=== PATIENT | female | born 1940 | race Caucasian/White ===

== ENCOUNTER 2020-09-05 07:54 | Outpatient (CLI) | payer MEDICARE ==
[2020-09-05 10:37] LABS: Estimated GFR-MDRD - POC Greater than 90
== END 2020-09-05 07:55 | disposition home or self-care (01) ==
LOC: CSHCT 07:54
PROVIDERS: ATTEND Family Medicine
DX: R10.84 Generalized abdominal pain (principal)
CPT/HCPCS: 74177; 82565

== ENCOUNTER 2020-10-16 10:26 | Day surgery (SDC) | payer MEDICARE ==
[2020-10-14 14:02] VITALS: BMI 23.0
[2020-10-16] MEDS ORDERED: Lidocaine 1% MPF 2 ML VIAL ONE (11:18)
[2020-10-16] MEDS ORDERED: Lidocaine 2% MPF 10 ML AMP (For Epidural Use) ONE (12:15)
[2020-10-16] MEDS ORDERED: PROPOFOL 40 ML ONE (12:15)
[2020-10-16] MEDS ORDERED: PROPOFOL 20 ML ONE (12:34)
== END 2020-10-16 13:55 | disposition home or self-care (01) ==
LOC: CSHSDC 10:26
PROVIDERS: ATTEND Internal Medicine Gastroenterology
DX: K63.89 Other specified diseases of intestine (principal); K59.00 Constipation, unspecified; K31.7 Polyp of stomach and duodenum; K29.80 Duodenitis without bleeding
CPT/HCPCS: 88305; J2704

== ENCOUNTER 2021-12-09 14:21 | Inpatient (IN) | payer MEDICARE ==
[2021-12-09 14:55] LABS: #Basophils 0.1 10x3/uL (0.0-0.2); #Monocytes 1.2 10x3/uL (0.0-1.1); #Neutrophils 8.1 10x3/uL (1.5-8.4); %Basophils 0.5 % (0.0-2.0); %Eosinophils 0.2 % (0.0-6.0); %Lymphocytes 11.9 % (18.0-47.0); %Monocytes 11.1 % (0.0-10.0); %Neutrophils 75.6 % (40.0-75.0); Hemoglobin 11.6 g/dL (12.0-15.5); Mean Corpuscular Hemoglobin 23.8 pg (27.0-33.0); Mean Corpuscular Volume 76.8 fl (81.6-98.3); Mean Platelet Volume 10.5 fl (7.4-10.4); Platelet Count 326 10x3/uL (150-450); RBC Distribution Width 19.2 % (11.5-14.5); Red Blood Cell (RBC) Count 4.87 10x6/uL (3.90-5.03); White Blood Cell (WBC) Count 10.7 10x3/uL (3.5-10.5)
[2021-12-09 15:14] LABS: ALT (SGPT) 44 U/L (8-55); AST (SGOT) 46 U/L (5-34); Albumin 4.2 g/dL (3.4-4.8); Alkaline Phosphatase 172 U/L (40-110); Anion Gap 17 mmol/L (10-20); BUN (Urea Nitrogen) 10 mg/dL (9.8-20.1); Bilirubin, Total 0.3 mg/dL (0.2-1.2); Calc. Creatinine Clearance 0 mL/min (70-130); Calcium 9.1 mg/dL (7.8-10.44); Carbon Dioxide 22 mmol/L (23-31); Chloride 103 mmol/L (98-107); Estimated GFR 88; Globulin 2.7 g/dL (2.4-3.5); Glucose 138 mg/dL (83-110); Lipase 14 U/L (8-78); Potassium 3.9 mmol/L (3.5-5.1); Protein, Total 6.9 g/dL (5.8-8.1); Sodium 138 mmol/L (136-145)
[2021-12-09 15:25] LABS: SARS-CoV-2 NAA Rapid Test Not Detected (NotDetected)
[2021-12-09 15:41] LABS: CKMB 2.9 ng/mL (0-6.6)
[2021-12-09] MEDS ORDERED: Aspirin Chewable 81 MG TAB ONE (16:01)
[2021-12-09] MEDS ORDERED: Nitroglycerin 0.4 MG TAB (25 Tab Bottle) SL PRN (16:46)
[2021-12-09] MEDS ORDERED: Ondansetron PF 4 MG/2 ML Vial IVP PRN (16:59)
[2021-12-09] MEDS ORDERED: Acetaminophen 325 MG TAB PO PRN (16:59)
[2021-12-09] MEDS ORDERED: Ondansetron ODT 4 MG TAB PO PRN (16:59)
[2021-12-09] MEDS ORDERED: Acetaminophen 650 MG Suppository PR PRN (16:59)
[2021-12-09] MEDS ORDERED: Nitroglycerin 2% Ointment 1 INCH/1 GM Packet TOP PRN (17:09)
[2021-12-09 18:09] LABS: Troponin I 0.402 ng/mL (< 0.028)
[2021-12-09 19:40] VITALS: BMI 26.0
[2021-12-09] MEDS: Metoprolol Tartrate 25 MG TAB PO SCH (20:23)
[2021-12-09] MEDS: Atorvastatin Calcium 40 MG TAB PO SCH (20:23)
[2021-12-09] MEDS: Famotidine 20 MG TAB PO SCH (20:23)
[2021-12-09 21:45] LABS: Troponin I 0.433 ng/mL (< 0.028)
[2021-12-10 05:12] LABS: #Basophils 0.1 10x3/uL (0.0-0.2); #Eosinphils 0.1 10x3/uL (0.0-0.5); #Monocytes 1.6 10x3/uL (0.0-1.1); #Neutrophils 6.4 10x3/uL (1.5-8.4); %Basophils 0.5 % (0.0-2.0); %Eosinophils 1.3 % (0.0-6.0); %Monocytes 14.4 % (0.0-10.0); %Neutrophils 58.1 % (40.0-75.0); Hemoglobin 11.3 g/dL (12.0-15.5); Mean Corpuscular HGB CONC 30.9 g/dL (32.0-36.0); Mean Corpuscular Hemoglobin 24.2 pg (27.0-33.0); Mean Corpuscular Volume 78.4 fl (81.6-98.3); Mean Platelet Volume 11.1 fl (7.4-10.4); Platelet Count 318 10x3/uL (150-450); RBC Distribution Width 19.5 % (11.5-14.5); Red Blood Cell (RBC) Count 4.67 10x6/uL (3.90-5.03)
[2021-12-10 05:29] LABS: Anion Gap 19 mmol/L (10-20); BUN (Urea Nitrogen) 13 mg/dL (9.8-20.1); Calc. Creatinine Clearance 67 mL/min (70-130); Calcium 9.2 mg/dL (7.8-10.44); Carbon Dioxide 23 mmol/L (23-31); Cardiac Risk 3.8 (Less than 4.5); Chloride 104 mmol/L (98-107); Cholesterol 192 mg/dl (< 200 Desired); Estimated GFR 86; Glucose 178 mg/dL (83-110); HDL Cholesterol 50 mg/dL (>60 Neg Risk); LDL Cholesterol, Calculated 109 mg/dL; Potassium 3.9 mmol/L (3.5-5.1); Sodium 142 mmol/L (136-145); Triglycerides 166 mg/dL (Less than 150)
[2021-12-10] MEDS: Famotidine 20 MG TAB PO SCH ×2 (11:12→20:13)
[2021-12-10] MEDS: Metoprolol Tartrate 25 MG TAB PO SCH ×2 (11:12→20:12)
[2021-12-10] MEDS: Aspirin 325 mg Enteric Coated Tablet PO SCH (11:12)
[2021-12-10] MEDS ORDERED: Communication Order-Pharmacy FS SCH (11:15)
[2021-12-10] MEDS: Sodium Chloride 0.9% 1,000 ML IV SCH (11:38)
[2021-12-10] MEDS: Atorvastatin Calcium 40 MG TAB PO SCH (20:13)
[2021-12-11] MEDS: Sodium Chloride 0.9% 1,000 ML IV SCH ×2 (03:11→13:12)
[2021-12-11 05:25] LABS: #Basophils 0.1 10x3/uL (0.0-0.2); #Eosinphils 0.1 10x3/uL (0.0-0.5); #Monocytes 1.1 10x3/uL (0.0-1.1); #Neutrophils 5.8 10x3/uL (1.5-8.4); %Basophils 0.6 % (0.0-2.0); %Eosinophils 0.6 % (0.0-6.0); %Lymphocytes 22.4 % (18.0-47.0); %Monocytes 11.7 % (0.0-10.0); %Neutrophils 63.3 % (40.0-75.0); Hemoglobin 10.8 g/dL (12.0-15.5); Mean Corpuscular HGB CONC 31.5 g/dL (32.0-36.0); Mean Corpuscular Hemoglobin 24.3 pg (27.0-33.0); Mean Corpuscular Volume 77.1 fl (81.6-98.3); Mean Platelet Volume 10.8 fl (7.4-10.4); Platelet Count 234 10x3/uL (150-450); Red Blood Cell (RBC) Count 4.45 10x6/uL (3.90-5.03); White Blood Cell (WBC) Count 9.1 10x3/uL (3.5-10.5)
[2021-12-11 05:28] LABS: Anion Gap 16 mmol/L (10-20); BUN (Urea Nitrogen) 18 mg/dL (9.8-20.1); Calc. Creatinine Clearance 70 mL/min (70-130); Calcium 8.7 mg/dL (7.8-10.44); Carbon Dioxide 25 mmol/L (23-31); Chloride 105 mmol/L (98-107); Estimated GFR 88; Glucose 105 mg/dL (83-110); Potassium 3.9 mmol/L (3.5-5.1); Sodium 142 mmol/L (136-145)
[2021-12-11] MEDS: Famotidine 20 MG TAB PO SCH ×2 (06:06→22:00)
[2021-12-11] MEDS: Metoprolol Tartrate 25 MG TAB PO SCH ×2 (06:07→22:04)
[2021-12-11] MEDS: Atorvastatin Calcium 40 MG TAB PO SCH ×2 (06:20→22:04)
[2021-12-11] MEDS: Aspirin 325 mg Enteric Coated Tablet PO SCH (06:22)
[2021-12-11] MEDS ORDERED: Heparin 10,000 UNITS/ 10 ML VIAL ONE (07:06)
[2021-12-11] MEDS ORDERED: Nitroglycerin 50 MG/250 ML BOT 0 ML ONE (07:06)
[2021-12-11] MEDS ORDERED: Adenosine 6 MG/2 ML VIAL ONE (07:07)
[2021-12-11] MEDS ORDERED: Lidocaine 1% 20 ML MDV ONE (07:08)
[2021-12-11] MEDS ORDERED: Iopamidol 300 61% 100 ML VIAL FS ONE (08:00)
[2021-12-11] MEDS ORDERED: Midazolam HCl 2 mg/2 ml Vial ONE (08:56)
[2021-12-11] MEDS ORDERED: Enoxaparin Sodium 40 MG/0.4 ML SYRINGE SC SCH (09:00)
[2021-12-11] MEDS ORDERED: Sodium Chloride 0.9% 200 ML IV PRN (09:19)
[2021-12-11] MEDS ORDERED: Nitroglycerin 0.4 MG TAB (25 Tab Bottle) SL PRN (09:19)
[2021-12-11] MEDS ORDERED: Acetaminophen/Codeine 30-300mg Tablet PO PRN ×2 (09:19)
[2021-12-11] MEDS ORDERED: Aspirin 81 mg Enteric Coated Tablet PO SCH (09:30)
[2021-12-11] MEDS ORDERED: Apixaban 5 MG TAB PO SCH (10:15)
[2021-12-11] MEDS: Apixaban 5 MG TAB PO SCH (22:04)
[2021-12-12 05:27] LABS: #Eosinphils 0.1 10x3/uL (0.0-0.5); #Monocytes 0.9 10x3/uL (0.0-1.1); #Neutrophils 4.7 10x3/uL (1.5-8.4); %Basophils 0.5 % (0.0-2.0); %Eosinophils 1.1 % (0.0-6.0); %Lymphocytes 26.7 % (18.0-47.0); %Monocytes 11.6 % (0.0-10.0); %Neutrophils 59.1 % (40.0-75.0); Hemoglobin 9.7 g/dL (12.0-15.5); Mean Corpuscular HGB CONC 31.1 g/dL (32.0-36.0); Mean Corpuscular Hemoglobin 24.4 pg (27.0-33.0); Mean Corpuscular Volume 78.4 fl (81.6-98.3); Mean Platelet Volume 11.3 fl (7.4-10.4); Platelet Count 214 10x3/uL (150-450); RBC Distribution Width 19.1 % (11.5-14.5); Red Blood Cell (RBC) Count 3.98 10x6/uL (3.90-5.03); White Blood Cell (WBC) Count 7.9 10x3/uL (3.5-10.5)
[2021-12-12 06:00] LABS: Anion Gap 15 mmol/L (10-20); BUN (Urea Nitrogen) 15 mg/dL (9.8-20.1); Calc. Creatinine Clearance 79 mL/min (70-130); Calcium 8.6 mg/dL (7.8-10.44); Carbon Dioxide 23 mmol/L (23-31); Chloride 105 mmol/L (98-107); Estimated GFR 91; Glucose 100 mg/dL (83-110); Potassium 3.7 mmol/L (3.5-5.1); Sodium 139 mmol/L (136-145)
[2021-12-12] MEDS: Famotidine 20 MG TAB PO SCH (08:22)
[2021-12-12] MEDS: Apixaban 5 MG TAB PO SCH ×2 (08:22→19:57)
[2021-12-12] MEDS: Metoprolol Tartrate 25 MG TAB PO SCH ×2 (08:23→19:55)
[2021-12-12] MEDS ORDERED: Lorazepam 0.5 MG TAB PO SCH (10:45)
[2021-12-12 11:04] LABS: ALT (SGPT) 263 U/L (8-55); AST (SGOT) 175 U/L (5-34); Albumin 3.5 g/dL (3.4-4.8); Alkaline Phosphatase 228 U/L (40-110); Bilirubin, Direct 0.2 mg/dL (0.1-0.3); Bilirubin, Total 0.4 mg/dL (0.2-1.2)
[2021-12-12 14:45] LABS: INR-International Normal Ratio 1.1; PTT 29.6 sec (22.0-33.0); Prothrombin Time 11.4 sec (9.5-12.1)
[2021-12-12 14:47] LABS: Iron 14 ug/dL (50-170); Iron Binding Capacity, Total 385 mcg/dL (265-497)
[2021-12-12 15:06] LABS: Ferritin 60.95 ng/mL (10-291); HIV (1/2) Antibody/Antigen Non-Reactive (NonReactive); HIV 1/2 INDEX 0.05 S/CO (<1.00); Syphilis Antibody Nonreactive (Nonreactive); Syphilis Antibody Index 0.08 S/CO (<1.00 Non-Reactive)
[2021-12-12 15:58] LABS: Bilirubin Neg (Negative); Blood, Urine Negative (Negative); Clarity Clear (Clear); Glucose, Urine (Dipstick) Normal (Negative); Ketone, Urine Negative (Negative); Leukocyte Negative (Negative); Nitrite Negative (Negative); Protein, Urine (Dipstick) Negative (Neg-Trace); Urobilinogen Normal mg/dL (Less than 2)
[2021-12-12 16:06] LABS: Urine Culture Reflex No No
[2021-12-12 16:15] LABS: Squamous Epithelial 0-3 HPF (0-3)
[2021-12-12 16:16] LABS: Bacteria/HPF Rare-Few HPF (None Seen); RBC/HPF None Seen HPF (0-3); WBC/HPF 0-3 HPF (0-3)
[2021-12-12] MEDS: clonazePAM 0.5 MG TAB PO SCH (19:57)
[2021-12-13 07:49] LABS: #Eosinphils 0.1 10x3/uL (0.0-0.5); #Neutrophils 5.1 10x3/uL (1.5-8.4); %Basophils 0.5 % (0.0-2.0); %Eosinophils 1.5 % (0.0-6.0); %Lymphocytes 22.6 % (18.0-47.0); %Monocytes 12.6 % (0.0-10.0); %Neutrophils 61.6 % (40.0-75.0); Hemoglobin 9.9 g/dL (12.0-15.5); Mean Corpuscular HGB CONC 31.1 g/dL (32.0-36.0); Mean Corpuscular Hemoglobin 24.3 pg (27.0-33.0); Mean Corpuscular Volume 78.1 fl (81.6-98.3); Mean Platelet Volume 11.1 fl (7.4-10.4); Platelet Count 220 10x3/uL (150-450); RBC Distribution Width 19.7 % (11.5-14.5); Red Blood Cell (RBC) Count 4.07 10x6/uL (3.90-5.03); White Blood Cell (WBC) Count 8.2 10x3/uL (3.5-10.5)
[2021-12-13] MEDS ORDERED: Iopamidol 370 76% 100 ML VIAL ONE (08:00)
[2021-12-13 08:01] LABS: PTT 29.3 sec (22.0-33.0); Prothrombin Time 11.1 sec (9.5-12.1)
[2021-12-13 08:11] LABS: ALT (SGPT) 226 U/L (8-55); AST (SGOT) 117 U/L (5-34); Albumin 3.5 g/dL (3.4-4.8); Alkaline Phosphatase 237 U/L (40-110); Anion Gap 16 mmol/L (10-20); BUN (Urea Nitrogen) 16 mg/dL (9.8-20.1); Bilirubin, Direct 0.2 mg/dL (0.1-0.3); Bilirubin, Total 0.5 mg/dL (0.2-1.2); Calc. Creatinine Clearance 79 mL/min (70-130); Calcium 8.7 mg/dL (7.8-10.44); Carbon Dioxide 25 mmol/L (23-31); Cardiac Risk 3.7 (Less than 4.5); Chloride 104 mmol/L (98-107); Cholesterol 132 mg/dl (< 200 Desired); Estimated GFR 91; Globulin 2.4 g/dL (2.4-3.5); Glucose 106 mg/dL (83-110); HDL Cholesterol 36 mg/dL (>60 Neg Risk); LDL Cholesterol, Calculated 73 mg/dL; Potassium 3.6 mmol/L (3.5-5.1); Protein, Total 5.9 g/dL (5.8-8.1); Sodium 141 mmol/L (136-145); Triglycerides 114 mg/dL (Less than 150)
[2021-12-13] MEDS: Apixaban 5 MG TAB PO SCH ×2 (08:21→21:34)
[2021-12-13] MEDS: Metoprolol Tartrate 25 MG TAB PO SCH ×2 (08:21→21:33)
[2021-12-13] MEDS ORDERED: PARoxetine 20 MG TAB PO SCH ×2 (09:00→16:00)
[2021-12-13 12:48] LABS: HBCM Index 0.07 S/CO (0-0.79); HBSAg Index 0.27 S/CO (0-0.99); Hep A IgM AB Non-Reactive (NonReactive); Hep B Surf Ag Non-Reactive S/CO (NonReactive); Hep C IgG Ab Non-Reactive (NonReactive); Hep C Index 0.05 S/CO (0-0.79); Hepatitis B Core IgM Abs Non-Reactive (NonReactive)
[2021-12-13 12:51] LABS: Vitamin B12 1708 pg/mL (211-911)
[2021-12-13] MEDS ORDERED: Folic Acid 1 MG TAB PO SCH (14:00)
[2021-12-13] MEDS ORDERED: Furosemide 20 MG/2 ML VIAL SLOW IVP SCH (16:15)
[2021-12-13] MEDS: clonazePAM 0.5 MG TAB PO SCH (21:32)
[2021-12-13] MEDS: Mirtazapine 15 MG TAB PO SCH (21:33)
[2021-12-14 05:04] LABS: #Basophils 0.1 10x3/uL (0.0-0.2); #Eosinphils 0.2 10x3/uL (0.0-0.5); #Neutrophils 4.8 10x3/uL (1.5-8.4); %Basophils 0.7 % (0.0-2.0); %Eosinophils 2.6 % (0.0-6.0); %Lymphocytes 19.8 % (18.0-47.0); %Monocytes 12.6 % (0.0-10.0); %Neutrophils 62.8 % (40.0-75.0); Hemoglobin 9.9 g/dL (12.0-15.5); Mean Corpuscular HGB CONC 31.7 g/dL (32.0-36.0); Mean Corpuscular Hemoglobin 24.7 pg (27.0-33.0); Mean Corpuscular Volume 77.8 fl (81.6-98.3); RBC Distribution Width 19.7 % (11.5-14.5); Red Blood Cell (RBC) Count 4.01 10x6/uL (3.90-5.03); White Blood Cell (WBC) Count 7.6 10x3/uL (3.5-10.5)
[2021-12-14 05:09] LABS: Platelet Count 236 10x3/uL (150-450)
[2021-12-14 05:28] LABS: ALT (SGPT) 177 U/L (8-55); AST (SGOT) 62 U/L (5-34); Albumin 3.5 g/dL (3.4-4.8); Alkaline Phosphatase 223 U/L (40-110); Anion Gap 15 mmol/L (10-20); BUN (Urea Nitrogen) 14 mg/dL (9.8-20.1); Bilirubin, Total 0.5 mg/dL (0.2-1.2); Calc. Creatinine Clearance 77 mL/min (70-130); Calcium 9.1 mg/dL (7.8-10.44); Carbon Dioxide 27 mmol/L (23-31); Chloride 102 mmol/L (98-107); Estimated GFR 90; Globulin 2.6 g/dL (2.4-3.5); Glucose 108 mg/dL (83-110); Magnesium 1.8 mg/dL (1.6-2.6); Potassium 3.2 mmol/L (3.5-5.1); Protein, Total 6.1 g/dL (5.8-8.1); Sodium 141 mmol/L (136-145)
[2021-12-14] MEDS: Apixaban 5 MG TAB PO SCH ×2 (11:41→20:43)
[2021-12-14] MEDS: Metoprolol Tartrate 25 MG TAB PO SCH ×2 (11:41→20:44)
[2021-12-14] MEDS: Folic Acid 1 MG TAB PO SCH (11:42)
[2021-12-14] MEDS: PARoxetine 20 MG TAB PO SCH (11:42)
[2021-12-14] MEDS ORDERED: Potassium Chloride 20 MEQ TAB PO SCH (16:00)
[2021-12-14] MEDS ORDERED: Magnesium 2 GM/50 ML(in water) 2 GM in Premix Bag 1 BAG IVPB SCH (16:00)
[2021-12-14] MEDS: clonazePAM 0.5 MG TAB PO SCH (20:45)
[2021-12-14] MEDS: Mirtazapine 15 MG TAB PO SCH (20:45)
[2021-12-14] MEDS ORDERED: clonazePAM 0.5 MG TAB ONE ×2 (20:46)
[2021-12-15 05:26] LABS: #Basophils 0.1 10x3/uL (0.0-0.2); #Eosinphils 0.2 10x3/uL (0.0-0.5); #Neutrophils 4.5 10x3/uL (1.5-8.4); %Basophils 0.7 % (0.0-2.0); %Eosinophils 3.1 % (0.0-6.0); %Lymphocytes 24.4 % (18.0-47.0); %Monocytes 12.7 % (0.0-10.0); %Neutrophils 57.9 % (40.0-75.0); Hemoglobin 9.9 g/dL (12.0-15.5); Mean Corpuscular HGB CONC 30.7 g/dL (32.0-36.0); Mean Corpuscular Hemoglobin 24.5 pg (27.0-33.0); Mean Corpuscular Volume 79.7 fl (81.6-98.3); Mean Platelet Volume 11.2 fl (7.4-10.4); Platelet Count 273 10x3/uL (150-450); RBC Distribution Width 19.5 % (11.5-14.5); Red Blood Cell (RBC) Count 4.04 10x6/uL (3.90-5.03); White Blood Cell (WBC) Count 7.7 10x3/uL (3.5-10.5)
[2021-12-15 05:49] LABS: ALT (SGPT) 132 U/L (8-55); AST (SGOT) 40 U/L (5-34); Albumin 3.4 g/dL (3.4-4.8); Alkaline Phosphatase 234 U/L (40-110); Anion Gap 15 mmol/L (10-20); BUN (Urea Nitrogen) 13 mg/dL (9.8-20.1); Bilirubin, Total 0.4 mg/dL (0.2-1.2); Calc. Creatinine Clearance 74 mL/min (70-130); Calcium 9.1 mg/dL (7.8-10.44); Carbon Dioxide 29 mmol/L (23-31); Chloride 102 mmol/L (98-107); Estimated GFR 89; Globulin 2.7 g/dL (2.4-3.5); Glucose 102 mg/dL (83-110); Magnesium 2.3 mg/dL (1.6-2.6); Potassium 4.5 mmol/L (3.5-5.1); Protein, Total 6.1 g/dL (5.8-8.1); Sodium 141 mmol/L (136-145)
[2021-12-15] MEDS: Folic Acid 1 MG TAB PO SCH (09:45)
[2021-12-15] MEDS: PARoxetine 20 MG TAB PO SCH (09:45)
[2021-12-15] MEDS: Apixaban 5 MG TAB PO SCH ×2 (09:45→20:02)
[2021-12-15] MEDS: Metoprolol Tartrate 25 MG TAB PO SCH ×2 (09:45→20:02)
[2021-12-15] MEDS ORDERED: Aspirin 81 mg Enteric Coated Tablet PO SCH (13:15)
[2021-12-15] MEDS: clonazePAM 0.5 MG TAB PO SCH (20:01)
[2021-12-15] MEDS: Mirtazapine 15 MG TAB PO SCH (20:02)
[2021-12-15] MEDS ORDERED: Atorvastatin Calcium 40 MG TAB PO SCH (21:00)
[2021-12-16 05:16] LABS: ALT (SGPT) 108 U/L (8-55); AST (SGOT) 32 U/L (5-34); Albumin 3.6 g/dL (3.4-4.8); Alkaline Phosphatase 228 U/L (40-110); Anion Gap 13 mmol/L (10-20); BUN (Urea Nitrogen) 15 mg/dL (9.8-20.1); Bilirubin, Total 0.3 mg/dL (0.2-1.2); Calc. Creatinine Clearance 72 mL/min (70-130); Calcium 9.6 mg/dL (7.8-10.44); Carbon Dioxide 31 mmol/L (23-31); Chloride 101 mmol/L (98-107); Estimated GFR 89; Glucose 99 mg/dL (83-110); Magnesium 2.1 mg/dL (1.6-2.6); Potassium 4.3 mmol/L (3.5-5.1); Protein, Total 6.6 g/dL (5.8-8.1); Sodium 141 mmol/L (136-145)
[2021-12-16 05:25] LABS: #Basophils 0.1 10x3/uL (0.0-0.2); #Eosinphils 0.3 10x3/uL (0.0-0.5); #Neutrophils 4.4 10x3/uL (1.5-8.4); %Basophils 0.9 % (0.0-2.0); %Eosinophils 4.3 % (0.0-6.0); %Lymphocytes 23.4 % (18.0-47.0); %Monocytes 12.5 % (0.0-10.0); %Neutrophils 57.6 % (40.0-75.0); Hemoglobin 10.1 g/dL (12.0-15.5); Mean Corpuscular HGB CONC 30.4 g/dL (32.0-36.0); Mean Corpuscular Hemoglobin 24.2 pg (27.0-33.0); Mean Corpuscular Volume 79.4 fl (81.6-98.3); Mean Platelet Volume 11.1 fl (7.4-10.4); Platelet Count 349 10x3/uL (150-450); RBC Distribution Width 19.2 % (11.5-14.5); Red Blood Cell (RBC) Count 4.18 10x6/uL (3.90-5.03); White Blood Cell (WBC) Count 7.7 10x3/uL (3.5-10.5)
[2021-12-16] MEDS: PARoxetine 20 MG TAB PO SCH (08:27)
[2021-12-16] MEDS: Metoprolol Tartrate 25 MG TAB PO SCH (08:28)
[2021-12-16] MEDS: Apixaban 5 MG TAB PO SCH (08:29)
[2021-12-16] MEDS: Folic Acid 1 MG TAB PO SCH (08:31)
[2021-12-16] MEDS ORDERED: Aspirin 81 mg Enteric Coated Tablet PO SCH (09:00)
[2021-12-16 16:42] VITALS: BP 122/62; TEMP 96.6
[2021-12-18] MEDS ORDERED: Apixaban 5 MG TAB PO SCH (21:00)
== END 2021-12-16 17:50 | DRG 175 ==
LOC: CSHERS 14:21 → CSHTELE 17:46
PROVIDERS: ADMIT Internal Medicine; ATTEND Family Medicine
PROC: 4A023N8 Measurement of Cardiac Sampling and Pressure, Bilateral, Percutaneous Approach (ICD-10-PCS; principal; 2021-12-11)
PROC: B2111ZZ Fluoroscopy of Multiple Coronary Arteries using Low Osmolar Contrast (ICD-10-PCS; 2021-12-11)
PROC: B2151ZZ Fluoroscopy of Left Heart using Low Osmolar Contrast (ICD-10-PCS; 2021-12-11)
PROC: B31N1ZZ Fluoroscopy of Other Upper Arteries using Low Osmolar Contrast (ICD-10-PCS; 2021-12-11)
DX: I26.99 Other pulmonary embolism without acute cor pulmonale (principal); G93.41 Metabolic encephalopathy; J96.01 Acute respiratory failure with hypoxia; I63.9 Cerebral infarction, unspecified; I82.432 Acute embolism and thrombosis of left popliteal vein; J90 Pleural effusion, not elsewhere classified; I24.8 Other forms of acute ischemic heart disease; K21.9 Gastro-esophageal reflux disease without esophagitis; M19.90 Unspecified osteoarthritis, unspecified site; Z20.822 Contact with and (suspected) exposure to COVID-19; E78.5 Hyperlipidemia, unspecified; I25.10 Atherosclerotic heart disease of native coronary artery without angina pectoris; I27.20 Pulmonary hypertension, unspecified; D50.9 Iron deficiency anemia, unspecified; E87.6 Hypokalemia; Z85.3 Personal history of malignant neoplasm of breast; Z88.8 Allergy status to other drugs, medicaments and biological substances; Z79.82 Long term (current) use of aspirin; Z79.899 Other long term (current) drug therapy; Z79.4 Long term (current) use of insulin; Z98.890 Other specified postprocedural states
CPT/HCPCS: 36415; 36416; 70450; 70551; 71045; 71275; 74177; 76705; 80048; 80053; 80061; 80074; 80076; 81001; 82140; 82553; 82607; 82728; 82746; 83036; 83540; 83550; 83690; 83735; 83880; 84443; 84484; 85025; 85610; 85730; 86140; 86780; 86850; 86900; 86901; 87389; 87633; 93005; 93010; 93306; 93460; 93880; 93970; 94760; 97139; 99152; C1751; C1760; C1769; C1887; J0153; J1644; J1940; J2250; J3475; J7050; Q9967; U0002

== ENCOUNTER 2022-05-25 21:14 | Emergency (ER) | payer MEDICARE ==
[2022-05-25 23:43] LABS: #Eosinphils 0.1 10x3/uL (0.0-0.5); #Monocytes 1.3 10x3/uL (0.0-1.1); #Neutrophils 8.4 10x3/uL (1.5-8.4); %Basophils 0.3 % (0.0-2.0); %Eosinophils 0.4 % (0.0-6.0); %Lymphocytes 14.5 % (18.0-47.0); %Monocytes 11.2 % (0.0-10.0); %Neutrophils 73.2 % (40.0-75.0); Hemoglobin 11.2 g/dL (12.0-15.5); Mean Corpuscular HGB CONC 31.9 g/dL (32.0-36.0); Mean Corpuscular Hemoglobin 23.9 pg (27.0-33.0); Mean Platelet Volume 11.1 fl (7.4-10.4); Platelet Count 307 10x3/uL (150-450); RBC Distribution Width 18.8 % (11.5-14.5); Red Blood Cell (RBC) Count 4.68 10x6/uL (3.90-5.03); White Blood Cell (WBC) Count 11.4 10x3/uL (3.5-10.5)
[2022-05-25 23:54] LABS: ALT (SGPT) 26 U/L (8-55); AST (SGOT) 22 U/L (5-34); Albumin 3.9 g/dL (3.4-4.8); Alkaline Phosphatase 86 U/L (40-110); Anion Gap 12 mmol/L (10-20); BUN (Urea Nitrogen) 15 mg/dL (9.8-20.1); Bilirubin, Total 0.6 mg/dL (0.2-1.2); Calc. Creatinine Clearance 0 mL/min (70-130); Calcium 9.4 mg/dL (7.8-10.44); Carbon Dioxide 26 mmol/L (23-31); Chloride 105 mmol/L (98-107); Estimated GFR 91; Globulin 2.5 g/dL (2.4-3.5); Glucose 99 mg/dL (83-110); Potassium 3.2 mmol/L (3.5-5.1); Protein, Total 6.4 g/dL (5.8-8.1); Sodium 140 mmol/L (136-145)
[2022-05-26 01:15] LABS: Bilirubin Neg (Negative); Blood, Urine Negative (Negative); Clarity Clear (Clear); Glucose, Urine (Dipstick) Normal (Negative); Ketone, Urine 15 mg/dL (Negative); Leukocyte Negative (Negative); Nitrite Negative (Negative); Protein, Urine (Dipstick) Negative (Neg-Trace)
== END 2022-05-26 02:40 | disposition home or self-care (01) ==
LOC: CSHERS 21:14
DX: K62.5 Hemorrhage of anus and rectum (principal); I48.91 Unspecified atrial fibrillation; Z79.01 Long term (current) use of anticoagulants
CPT/HCPCS: 36415; 80053; 81003; 85025; 86900; 86901; 99283

== ENCOUNTER 2023-05-17 17:09 | Emergency (ER) | payer MEDICARE ==
[2023-05-17] MEDS ORDERED: Ondansetron PF 4 MG/2 ML Vial ONE (17:50)
[2023-05-17 18:06] LABS: #Basophils 0.1 10x3/uL (0.0-0.2); #Monocytes 1.2 10x3/uL (0.0-1.1); #Neutrophils 5.5 10x3/uL (1.5-8.4); %Basophils 0.8 % (0.0-2.0); %Eosinophils 0.4 % (0.0-6.0); %Lymphocytes 19.5 % (18.0-47.0); %Monocytes 13.9 % (0.0-10.0); %Neutrophils 64.8 % (40.0-75.0); Hematocrit 37.2 % (34.9-44.5); Hemoglobin 11.3 g/dL (12.0-15.5); Mean Corpuscular HGB CONC 30.4 g/dL (32.0-36.0); Mean Corpuscular Hemoglobin 22.7 pg (27.0-33.0); Mean Corpuscular Volume 74.8 fl (81.6-98.3); Mean Platelet Volume 11.2 fl (7.4-10.4); Platelet Count 469 10x3/uL (150-450); RBC Distribution Width 18.9 % (11.5-14.5); Red Blood Cell (RBC) Count 4.97 10x6/uL (3.90-5.03); White Blood Cell (WBC) Count 8.4 10x3/uL (3.5-10.5)
[2023-05-17 18:09] LABS: ALT (SGPT) 25 U/L (8-55); AST (SGOT) 27 U/L (5-34); Albumin 4.6 g/dL (3.4-4.8); Alkaline Phosphatase 86 U/L (40-110); Anion Gap 14 mmol/L (10-20); BUN (Urea Nitrogen) 18 mg/dL (9.8-20.1); Bilirubin, Total 0.5 mg/dL (0.2-1.2); Calc. Creatinine Clearance 0 mL/min (70-130); Calcium 9.9 mg/dL (7.8-10.44); Carbon Dioxide 26 mmol/L (23-31); Chloride 102 mmol/L (98-107); Estimated GFR 85; Globulin 2.6 g/dL (2.4-3.5); Glucose 91 mg/dL (83-110); Potassium 3.9 mmol/L (3.5-5.1); Protein, Total 7.2 g/dL (5.8-8.1); Sodium 138 mmol/L (136-145)
[2023-05-17 18:12] LABS: Troponin I Less than 0.010 ng/mL (< 0.028)
[2023-05-17 18:56] LABS: Burr Cells SLIGHT = 2-5 cells (100X) (0-1/hpf); Ovalocytes SLIGHT = 2-5 cells (100X) (0-1/hpf); Poikilocytosis SLIGHT = 6-15 cells (100X) (0-5/hpf)
[2023-05-17 18:57] LABS: Anisocytosis SLIGHT = 6-15 cells (100X) (0-5/hpf); Microcytosis SLIGHT = 6-15 cells (100X) (0-5/hpf)
[2023-05-17 18:58] LABS: Platelet Adequacy Comment Appears Adequate
[2023-05-17 18:59] LABS: Elliptocytes SLIGHT = 2-5 cells (100X) (0-1/hpf)
[2023-05-17 19:52] LABS: Bilirubin Neg (Negative); Blood, Urine Negative (Negative); Clarity Clear (Clear); Glucose, Urine (Dipstick) Normal (Negative); Ketone, Urine Negative (Negative); Leukocyte 100 (Negative); Nitrite Negative (Negative); Protein, Urine (Dipstick) 15 mg/dl (Neg-Trace); Urobilinogen Normal mg/dL (Less than 2)
[2023-05-17 21:06] LABS: CAUTI Indications for Culture Pelvic or flank pain; RBC/HPF 0-3 HPF (0-3)
[2023-05-17 21:07] LABS: Bacteria/HPF None Seen HPF (None Seen); Squamous Epithelial 0-3 HPF (0-3); Urine Culture Reflex No No
== END 2023-05-17 21:50 | disposition home or self-care (01) ==
LOC: CSHERS 17:09
DX: I95.1 Orthostatic hypotension (principal)
CPT/HCPCS: 36415; 71045; 80053; 81001; 84484; 85025; 93005; 93010; 96374; J2405

== ENCOUNTER 2023-05-31 10:40 | Emergency (ER) | payer MEDICARE ==
[2023-05-31 11:29] LABS: #Basophils 0.1 10x3/uL (0.0-0.2); #Eosinphils 0.1 10x3/uL (0.0-0.5); #Monocytes 0.9 10x3/uL (0.0-1.1); #Neutrophils 5.6 10x3/uL (1.5-8.4); %Basophils 0.6 % (0.0-2.0); %Eosinophils 1.4 % (0.0-6.0); %Lymphocytes 17.3 % (18.0-47.0); %Monocytes 10.9 % (0.0-10.0); %Neutrophils 68.9 % (40.0-75.0); Hematocrit 37.3 % (34.9-44.5); Hemoglobin 11.3 g/dL (12.0-15.5); Mean Corpuscular HGB CONC 30.3 g/dL (32.0-36.0); Mean Corpuscular Hemoglobin 22.8 pg (27.0-33.0); Mean Corpuscular Volume 75.2 fl (81.6-98.3); Mean Platelet Volume 10.5 fl (7.4-10.4); Platelet Count 432 10x3/uL (150-450); RBC Distribution Width 19.1 % (11.5-14.5); Red Blood Cell (RBC) Count 4.96 10x6/uL (3.90-5.03); White Blood Cell (WBC) Count 8.1 10x3/uL (3.5-10.5)
[2023-05-31 11:37] LABS: ALT (SGPT) 22 U/L (8-55); AST (SGOT) 23 U/L (5-34); Albumin 4.3 g/dL (3.4-4.8); Alkaline Phosphatase 90 U/L (40-110); Anion Gap 17 mmol/L (10-20); BUN (Urea Nitrogen) 15 mg/dL (9.8-20.1); Bilirubin, Total 0.4 mg/dL (0.2-1.2); Calc. Creatinine Clearance 0 mL/min (70-130); Calcium 9.7 mg/dL (7.8-10.44); Carbon Dioxide 23 mmol/L (23-31); Chloride 106 mmol/L (98-107); Estimated GFR 87; Globulin 2.6 g/dL (2.4-3.5); Glucose 109 mg/dL (83-110); Lipase 18 U/L (8-78); Potassium 4.2 mmol/L (3.5-5.1); Protein, Total 6.9 g/dL (5.8-8.1); Sodium 142 mmol/L (136-145)
[2023-05-31 11:39] LABS: Troponin I Less than 0.010 ng/mL (< 0.028)
[2023-05-31 13:53] LABS: Bilirubin Neg (Negative); Blood, Urine 50 (Negative); Clarity Cloudy (Clear); Glucose, Urine (Dipstick) Normal (Negative); Ketone, Urine Negative (Negative); Leukocyte 500 (Negative); Nitrite Positive (Negative); Protein, Urine (Dipstick) 100 mg/dl (Neg-Trace); Specific Gravity, Urine 1.005 (1.005-1.030); Urobilinogen Normal mg/dL (Less than 2)
[2023-05-31 14:07] LABS: CAUTI Indications for Culture Pelvic or flank pain; WBC/HPF Greater Than 50 HPF (0-3)
[2023-05-31 14:09] LABS: RBC/HPF 0-3 HPF (0-3)
[2023-05-31 14:10] LABS: Bacteria/HPF 3+ HPF (None Seen); Squamous Epithelial 0-3 HPF (0-3); Transitional Epithelial 0-3 HPF (None Seen)
[2023-05-31 14:11] LABS: Urine Culture Reflex Yes Yes
[2023-05-31] MEDS ORDERED: cefTRIAXone (ROCEPHIN) 1 GM VIAL ONE (14:31)
== END 2023-05-31 14:48 | disposition home or self-care (01) ==
LOC: CSHERS 10:40
DX: N39.0 Urinary tract infection, site not specified (principal)
CPT/HCPCS: 74177; 80053; 81001; 83690; 84484; 85025; 87077; 87086; 87186; 93005; 96374; J0696

== ENCOUNTER 2023-07-07 14:24 | Emergency (ER) | payer MEDICARE ==
[2023-07-07 15:44] LABS: #Eosinphils 0.1 10x3/uL (0.0-0.5); #Monocytes 1.1 10x3/uL (0.0-1.1); #Neutrophils 5.6 10x3/uL (1.5-8.4); %Basophils 0.5 % (0.0-2.0); %Eosinophils 0.7 % (0.0-6.0); %Lymphocytes 16.5 % (18.0-47.0); %Monocytes 13.4 % (0.0-10.0); %Neutrophils 68.3 % (40.0-75.0); Hematocrit 31.6 % (34.9-44.5); Hemoglobin 9.7 g/dL (12.0-15.5); Mean Corpuscular HGB CONC 30.7 g/dL (32.0-36.0); Mean Corpuscular Hemoglobin 22.6 pg (27.0-33.0); Mean Corpuscular Volume 73.7 fl (81.6-98.3); Mean Platelet Volume 10.8 fl (7.4-10.4); Platelet Count 401 10x3/uL (150-450); RBC Distribution Width 19.5 % (11.5-14.5); Red Blood Cell (RBC) Count 4.29 10x6/uL (3.90-5.03); White Blood Cell (WBC) Count 8.1 10x3/uL (3.5-10.5)
[2023-07-07 16:07] LABS: ALT (SGPT) 42 U/L (8-55); AST (SGOT) 43 U/L (5-34); Albumin 4.1 g/dL (3.4-4.8); Alkaline Phosphatase 83 U/L (40-110); Anion Gap 13 mmol/L (10-20); BUN (Urea Nitrogen) 18 mg/dL (9.8-20.1); Bilirubin, Total 0.5 mg/dL (0.2-1.2); Calc. Creatinine Clearance 0 mL/min (70-130); Calcium 9.2 mg/dL (7.8-10.44); Carbon Dioxide 25 mmol/L (23-31); Chloride 107 mmol/L (98-107); Estimated GFR 88; Globulin 2.2 g/dL (2.4-3.5); Glucose 129 mg/dL (83-110); Lipase 26 U/L (8-78); Potassium 4.1 mmol/L (3.5-5.1); Protein, Total 6.3 g/dL (5.8-8.1); Sodium 141 mmol/L (136-145); Troponin I Less than 0.010 ng/mL (< 0.028)
== END 2023-07-07 18:10 | disposition home or self-care (01) ==
LOC: CSHERS 14:24
DX: K59.00 Constipation, unspecified (principal); F41.1 Generalized anxiety disorder; F43.0 Acute stress reaction
CPT/HCPCS: 36415; 71045; 74177; 80053; 83690; 83880; 84484; 85025; 85379; 93005

== ENCOUNTER 2024-03-07 14:42 | Emergency (ER) | payer MEDICARE, OTHER ==
[2024-03-07] MEDS ORDERED: Boostrix 0.5 ML (Tdap) VIAL (>/=7 yrs of age) ONE (15:53)
== END 2024-03-07 18:07 | disposition home or self-care (01) ==
LOC: CSHERS 14:42
DX: S01.01XA Laceration without foreign body of scalp, initial encounter (principal); R60.0 Localized edema; M25.471 Effusion, right ankle; M25.474 Effusion, right foot; Z23 Encounter for immunization; W22.8XXA Striking against or struck by other objects, initial encounter
CPT/HCPCS: 12001; 90471; 90715